=== PATIENT | male | born 1980 ===

== ENCOUNTER 2017-02-12 01:44 | Observation (INO) | payer SELFPAY ==
[2017-02-12] MEDS ORDERED: Sodium Chloride 0.9% 1,000 ML IV STA (02:17)
--- NOTE | 2017-02-12 02:28 | ED PDOC ---
HPI: Psych/Substance Abuse Time Seen by Provider: 02/12/17 01:49 Chief Complaint (Nursing): Substance Abuse Chief Complaint (Provider): likely drug use ED Caveat: Other (clinical condition ) History Per: Patient History/Exam Limitations: clinical condition Onset/Duration Of Symptoms: Mins Current Symptoms Are (Timing): Still Present Additional Complaint(s): 32yo male presents to the ED via EMS for likely drug use. Patient unable to provide any history at this time due to clinical condition. Past Medical History Reviewed: Historical Data, Nursing Documentation, Vital Signs, Unable To Obtain (due to clinical condition ) Vital Signs: Last Vital Signs Temp Pulse 85 02/12/17 01:48 Resp 24 02/12/17 01:48 BP 121/84 02/12/17 01:48 Pulse Ox 98 02/12/17 01:48 - Family History Family History: States: Unknown Family Hx - Allergies Allergies/Adverse Reactions: Allergies Allergy/AdvReac Type Severity Reaction Status Date / Time Unobtainable Allergy Verified 02/12/17 01:52 Review of Systems Review Of Systems: ROS cannot be obtained secondary to pt's inabilty to answer questions. (due to clinical condition) Physical Exam - Reviewed Nursing Documentation Reviewed: Yes Vital Signs Reviewed: Yes - Physical Exam Appears: Positive for: No Acute Distress Head Exam: Positive for: ATRAUMATIC, NORMAL INSPECTION, NORMOCEPHALIC Skin: Positive for: Normal Color, Warm, Dry Eye Exam: Positive for: Nystagmus (some horizontal nystagmus ). Negative for: Normal appearance (constricted pupils, not pinpoint ) ENT: Positive for: Normal ENT Inspection Neck: Positive for: Normal, Painless ROM, Supple Cardiovascular/Chest: Positive for: Regular Rate, Rhythm. Negative for: Murmur , Tachycardia Respiratory: Positive for: Normal Breath Sounds. Negative for: Wheezing, Respiratory Distress Gastrointestinal/Abdominal: Positive for: Normal Exam, Soft. Negative for: Tenderness Back: Positive for: Normal Inspection Extremity: Positive for: Normal ROM. Negative for: Deformity, Swelling Neurologic/Psych: Positive for: Alert, Other (not answering questions) - Laboratory Results Result Diagrams: 02/12/17 03:37 02/12/17 03:37 - ECG O2 Sat by Pulse Oximetry: 98 Pulse Ox Interpretation: Normal (RA) Medical Decision Making Medical Decision Makin: Impression: possible ketamine use Plan: Labs EKG IVF reassess Patient s/o to Dr. Hill at 0700 pending sobriety. Scribe Attestation: Documented by Lars Shah acting as a scribe for Kilo Ayala MD. Provider Scribe Attestation: All medical record entries made by the Scribe were at my direction and personally dictated by me. I have reviewed the chart and agree that the record accurately reflects my personal performance of the history, physical exam, medical decision making, and the department course for this patient. I have also personally directed, reviewed, and agree with the discharge instructions and disposition. ED OBSERVATION Date of observation admission: 02/12/17 Time of observation admission: 06:23 - Observation admission statement Patient is being placed in observation because:: drug abuse - Goals of Observation Goals of observation are:: pending sobriety Disposition - Clinical Impression Clinical Impression: Polysubstance abuse - Patient ED Disposition Is Patient to be Admitted: Transfer of Care - Disposition Disposition: Transfer of Care Disposition Time: 07:00 Condition: STABLE Patient Signed Over To: Mellisa Hill Handoff Comments: pending sobriety
[2017-02-12 03:46] LABS: BASO % 0.2 % (0.0-2.0); EOS # 0.2 K/uL (0.0-0.7); EOS % 1.7 % (0.0-4.0); HEMATOCRIT 43.4 % (35.0-51.0); LYMPH # 2.9 K/uL (1.0-4.3); LYMPH % 28.7 % (20.0-40.0); MEAN CELL VOLUME 86.2 fl (80.0-94.0); MEAN CORPUSCULAR HEMOGLOBIN 28.9 pg (27.0-31.0); MEAN CORPUSCULAR HGB CONC 33.6 g/dL (33.0-37.0); MEAN PLATELET VOLUME 9.1 fl (7.2-11.7); MONO # 0.9 K/uL (0.0-0.8); MONO % 9.5 % (0.0-10.0); NEUT % 59.9 % (50.0-75.0); NRBC % 0.1 % (0.0-0.0); RED CELL DISTRIBUTION WIDTH 14.6 % (11.5-14.5); WHITE BLOOD COUNT 9.9 K/uL (4.8-10.8)
[2017-02-12 03:56] LABS: ALCOHOL SERUM < 10 mg/dl (0-10); BLOOD UREA NITROGEN 13 mg/dl (9-20); CALCIUM 9.5 mg/dL (8.4-10.2); CARBON DIOXIDE 26 mmol/L (22-30); CHLORIDE 107 mmol/L (98-107); GFR AFRICAN-AMERICAN > 60; GLUCOSE,RANDOM 67 mg/dL (75-110); POTASSIUM 3.4 MMOL/L (3.6-5.0); SODIUM 145 mmol/l (132-148)
[2017-02-12] MEDS ORDERED: DiphenhydrAMINE 50 mg/ml Inj ONE (04:52)
[2017-02-12] MEDS ORDERED: DiphenhydrAMINE 50 mg/ml Inj IM STA (04:57)
[2017-02-12] MEDS ORDERED: Sterile Water 10 ML IV ONE (05:59)
[2017-02-12 06:22] VITALS: RESP 16; TEMP 98.6
[2017-02-12 06:57] VITALS: O2SAT 100
--- NOTE | 2017-02-12 07:07 | ED PDOC ---
- Laboratory Results Result Diagrams: 02/12/17 03:37 02/12/17 03:37 - ECG O2 Sat by Pulse Oximetry: 100 (RA) Pulse Ox Interpretation: Normal Medical Decision Making Medical Decision Making: Receiving sign out: Pt signed over to me by Dr. Ayala at 0700 pending clinical sobriety. Scribe Attestation: Documented by Binta Bridges acting as a scribe for Mellisa Hill MD. Provider Attestation: All medical record entries made by the Scribe were at my direction and personally dictated by me. I have reviewed the chart and agree that the record accurately reflects my personal performance of the history, physical exam, medical decision making, and the department course for this patient. I have also personally directed, reviewed, and agree with the discharge instructions and disposition. urine dip is negative for acute pathology. 2.45p - patient now steady in gait. he is cooperative. will d/c Disposition Doctor Will See Patient In The: Office Counseled Patient/Family Regarding: Diagnosis, Need For Followup - Clinical Impression Clinical Impression: Polysubstance abuse - POA Present On Arrival: None - Disposition Disposition: Routine/Home Disposition Time: 14:48 Condition: STABLE
--- NOTE | 2017-02-12 08:52 | CARD ---
APPROVED REPORT EKG Measurement Heart [id number] <Conclusion> Normal sinus rhythm Normal ECG
[2017-02-12 12:46] VITALS: BP 157/91; PULSE 68
== END 2017-02-12 14:50 | disposition home or self-care (01) ==
LOC: H.ER 01:44 → H.EROBSV 06:23 → EDBD 06:23
PROVIDERS: ADMIT Emergency Medicine; ATTEND Emergency Medicine
DX: F19.10 Other psychoactive substance abuse, uncomplicated (principal)
CPT/HCPCS: 80048; 85025; 93005; 96360; 96361; 96372; 99284; G0378; G0480; J1200; J1630; J3485; J7040